=== PATIENT | male | born 1995 | race African-American/Black ===

== ENCOUNTER 2019-05-22 19:10 | Emergency (ER) | payer BC, OTHER ==
[~2019-05-22] VITALS: Ht 182.9 cm; Wt 81.6 kg
[2019-05-22 19:25] VITALS: BP 116/76
--- NOTE | 2019-05-22 19:25 | NUR ---
ED Nurse Note: Pt came to ED from home c/o fever x3 days, stated 104.0 temp. No fever during triage, VSS. Pt A&Ox4. Pt stated his son was sick this week.
[2019-05-22] MEDS ORDERED: Albuterol/Ipratropium 3ml neb HHN ONE (19:45)
--- NOTE | 2019-05-22 19:47 | Emergency Room Report ---
History of Present Illness General Chief Complaint: Flu Like Symptoms Source: Patient Present Illness HPI 24 YO Male presents to the ED c/o cough, nasal congestion, rhinorrhea, 8/10 in severity body-aches, fevers, chills and ST x 3 days. Not UTD with flu vaccinations. No recent travel. Infant at home with URI requiring multiple breathing treatments in the hospital. Pt. reports being SOB today at work. Pt. also reports right sided flank pain daily x over 5 months. Denies hematuria, frequency, penile d/c, or urgency. Denies significant PMHx. other than asthma as a child. Denies ear pain, high fevers, neck pain/stiffness, irritability, photophobia, dehydration, N/V/D. Denies Cp, Palpitations, LOC, AMS, seizures, paresthesias, or changes in Hearing or vision, no Sudden severe CARVAJAL. Denies cardiac Hx. Allergies: Coded Allergies: No Known Allergies (Unverified , 05/22/19) Patient History Past Medical History: see triage record Past Surgical History: none Pertinent Family History: none Reviewed Nursing Documentation: PMH: Agreed; PSxH: Agreed Nursing Documentation-PMH Past Medical History: No Stated History Review of Systems All Other Systems: negative except mentioned in HPI Physical Exam Vital Signs Date Time Temp Pulse Resp B/P (MAP) Pulse Ox O2 Delivery O2 Flow Rate FiO2 05/22/19 19:20 99.7 97 16 116/76 (89) 95 Room Air Sp02 EP Interpretation: reviewed, normal General Appearance: alert, GCS 15, non-toxic, mild distress Head: normocephalic, atraumatic Eyes: bilateral eye normal inspection, bilateral eye PERRL ENT: hearing grossly normal, normal voice, TMs + canals normal, uvula midline, moist mucus membranes, pharyngeal erythema Neck: full range of motion, no meningismus Respiratory: chest non-tender, lungs clear, normal breath sounds, no respiratory distress, no accessory muscle use, speaking full sentences, wheezing Cardiovascular #1: regular rate, rhythm, no edema, normal capillary refill Gastrointestinal: non tender, soft Rectal: deferred Genitourinary: normal inspection, CVA tenderness (R) Musculoskeletal: back normal, gait/station normal, normal range of motion, non- tender Neurologic: alert, oriented x3, responsive, motor strength/tone normal, sensory intact, normal gait, speech normal, grossly normal Psychiatric: judgement/insight normal Skin: diaphoresis Lymphatic: no adenopathy Medical Decision Making PA Attestation Dr. Schmitt Is my supervising Physician whom patient management has been discussed with. Diagnostic Impression: Primary Impression: Atypical pneumonia ER Course 24 YO Male presents to the ED c/o cough, nasal congestion, rhinorrhea, 8/10 in severity body-aches, fevers, chills and ST x 3 days. Not UTD with flu vaccinations. No recent travel. Infant at home with URI requiring multiple breathing treatments in the hospital. Pt. reports being SOB today at work. Pt. also reports right sided flank pain daily x over 5 months. Denies hematuria, frequency, penile d/c, or urgency. Denies significant PMHx. other than asthma as a child. Denies ear pain, high fevers, neck pain/stiffness, irritability, photophobia, dehydration, N/V/D. Denies Cp, Palpitations, LOC, AMS, seizures, paresthesias, or changes in Hearing or vision, no Sudden severe CARVAJAL. Denies cardiac Hx. Ddx considered but are not limited to URI, pneumonia, PE, strep pharyngitis, meningitis, influenza, OM/OE just to name a few. Vital signs: Pt. is afebrile, the remaining VS are WNL H&PE are most consistent with Viral Syndrome suspicious for Influenza will treat clinically - no meningeal signs, Lungs are clear and oropharynx is not involved, no evidence of bacterial infection at this time. ORDERS: -CXR: WNL - Influenza Swab: Negative ED INTERVENTIONS: -DuoNeb DISCHARGE: At this time pt. is stable for d/c to home. Will provide printed patient care instructions, and any necessary prescriptions. Care plan and follow up instructions have been discussed with the patient prior to discharge. Labs Test 05/22/19 19:45 Urine Color Pale yellow Urine Appearance Clear Urine pH 7 (4.5-8.0) Urine Specific [place] 1.005 (1.005-1.035) Urine Protein Negative (NEGATIVE) Urine Glucose (UA) Negative (NEGATIVE) Urine Ketones 2+ (NEGATIVE) Urine Blood 1+ (NEGATIVE) Urine Nitrite Negative (NEGATIVE) Urine Bilirubin Negative (NEGATIVE) Urine Urobilinogen Normal MG/DL (0.0-1.0) Urine Leukocyte Esterase Negative (NEGATIVE) Urine RBC 0-2 /HPF (0 - 0) Urine WBC 0-2 /HPF (0 - 0) Urine Squamous Epithelial Cells Few /LPF (NONE/OCC) Urine Bacteria Occasional /HPF (NONE) Chest X-Ray Diagnostic Results Chest X-Ray Diagnostic Results : Chest X-Ray Ordered: Yes # of Views/Limited/Complete: 1 View Indication: Shortness of Breath EP Interpretation: Yes PA Xray: Interpretation reviewed, by supervising MD, and agrees with findings. Interpretation: no consolidation, no effusion, no pneumothorax, no acute cardiopulmonary disease Impression: No acute disease Electronically Signed by: Riddhi Bower PA-C Last Vital Signs Date Time Temp Pulse Resp B/P (MAP) Pulse Ox O2 Delivery O2 Flow Rate FiO2 05/22/19 19:20 99.7 97 16 116/76 (89) 95 Room Air Status: improved Disposition: HOME, SELF-CARE Condition: Stable Scripts Naproxen* (NAPROXEN*) 500 Mg Tablet.dr 500 MG ORAL TWICE A DAY for 7 Days, #14 TAB Prov: Riddhi Bower 05/22/19 Albuterol Sulfate* (ALBUTEROL SULFATE MDI*) 8.5 Gm Hfa.aer.ad 2 PUFF INH Q3H, #1 INH 0 Refills Prov: Riddhi Bower 05/22/19 Codeine/Promethazine Hcl* (PROMETHAZINE-CODEINE SYRUP*) 118 Ml Syrup 5 ML ORAL Q6H PRN for For Cough, #120 ML 0 Refills Prov: Riddhi Bower 05/22/19 Azithromycin* (ZITHROMAX*) 250 Mg Tablet 250 MG ORAL DAILY, #6 TAB 0 Refills Take two tables once daily for 1 day, then one tablet once daily for 4 days. Prov: Riddhi Bower 05/22/19 Departure Forms: Return to Work Return to Work Date: May 27, 2019 Work Restrictions: None Other Restrictions: May return Sooner if Symptoms have resolved. Return to Full Activity: May 27, 2019 Patient Instructions: Acute Bronchitis, [id number] Additional Instructions: Take medications as directed. Follow up with a Primary Care Provider in 3-5 days, even if your symptoms have resolved. --Please review list of primary care clinics, if you do not already have a primary care provider Return sooner to ED if new symptoms occur, or current symptoms become worse. Do not drink alcohol, drive, or operate heavy machinery while taking Cough Syrup as this may cause drowsiness. - Please note that this Emergency Department Report was dictated using ev3, [employer] trainer technology software, occasionally this can lead to erroneous entry secondary to interpretation by the dictation equipment. Riddhi Bower May 22, 2019 19:47
[2019-05-22 20:30] LABS: APPEARANCE,URINE CLEAR; BILIRUBIN, URINE NEGATIVE (NEGATIVE); COLOR,URINE PALE YELLOW; GLUCOSE, URINE (UA) NEGATIVE (NEGATIVE); KETONES,URINE 2+ (NEGATIVE); LEUKOCYTE ESTERASE ,URINE NEGATIVE (NEGATIVE); NITRITE,URINE NEGATIVE (NEGATIVE); PH,URINE 7 (4.5-8.0); PROTEIN,URINE NEGATIVE (NEGATIVE); UROBILINOGEN,URINE NORMAL MG/DL (0.0-1.0)
[2019-05-22] MEDS ORDERED: NAPROXEN500 M1 ORAL (21:06)
[2019-05-22] MEDS ORDERED: ZITHROMAX250 MG ORAL (21:06)
[2019-05-22] MEDS ORDERED: ALBUTEROL SULF8.5 GM INH (21:06)
[2019-05-22] MEDS ORDERED: PROMETHAZINE-C118 M1 ORAL (21:06)
[2019-05-22 21:20] VITALS: BP 116/76
--- NOTE | 2019-05-22 21:20 | NUR ---
ER DISCHARGE NOTE: Patient is cleared to be discharged per ERMD, pt is aox4, on room air, with stable vital signs. pt was given dc and prescription instructions, pt was able to verbalize understanding, pt id band removed. pt is able to ambulate with steady gait. pt took all belongings.
--- NOTE | 2019-05-23 12:05 | Diagnostic Imaging Report ---
Indication: Dyspnea Comparison: None A single view chest radiograph was obtained. Findings: Cardiomediastinal appearance is within normal limits for age. The lungs are clear. Pulmonary vascularity is appropriate. The diaphragmatic contour is smooth and costophrenic angles are sharp. No pleural effusions are identified. The bones are unremarkable. Impression: No acute findings
== END 2019-05-22 21:20 | disposition home or self-care (01) ==
LOC: EMR 20:08
DX: J18.9 Pneumonia, unspecified organism (principal)
CPT/HCPCS: 71045; 81003; 86710; 94640; 94664; 99284; J7620